=== PATIENT | female | born 1985 | race Caucasian/White ===

== ENCOUNTER 2019-01-01 12:33 | Emergency (ER) | payer MEDICAID, SELFPAY ==
[2019-01-01 12:56] VITALS: BP 110/69; PULSE 42; RESP 16; TEMP 36.6; O2SAT 48
--- NOTE | 2019-01-01 16:49 | ED.GENADUL_ITS ---
Discharge Plan Disposition Patient Disposition: HOME Discharge Details Chief Complaint: EarProblem Clinical Impression: Ear foreign body Primary Care Provider: None,None ED Provider: Renetta Hall Discharge Instructions Additional Instructions: Observe for any pain, drainage or discomfort. Return for any concerns or worsening sooner if needed Discharge Data Discharge Date/Time-TO BE ENTERED AT DEPARTURE: 01/01/19 14:06 Medical Decision Making External earbud when molded adhered to patient's hearing. Myringotomy forceps used to separate the mold from the earring then foreign object was easily removed from the external ear. No sign of complication. Patient tolerated without difficulty. HPI General Date/Time Provider Initiated Documentation: 01/01/19 12:45 . HPI Narrative: Patient presents for complaints of a ear problem. Patient reports she was molding in the earbud into her ear and it accidentally molded around the loop pinna ring she had in place. Patient is now unable to remove the earbud. Patient denies associated pain unless attempts to remove the ear but externally. Patient denies any significant hearing changes. No other concerns or complaints Related Data Allergies Allergy/AdvReac Type Severity Reaction Status Date / Time Anesthetics - Amide Type AdvReac Unverified 01/01/19 13:01 General Stated Complaint: EarProblem GARRY: 4 Review of Systems All systems reviewed & are unremarkable except as noted in HPI and below ENT Ears, Nose, Mouth, and Throat: Denies ear discharge, Denies otalgia and Denies hearing loss [facility] Social History Smoking/Tobacco Use Status: Never Alcohol Intake: current Substance use type: does not use Do you feel safe at home: Yes Do you feel safe in your relationship?: Yes Exam Narrative Exam Narrative: CONST: Healthy appearing patient, in no acute distress. Well hydrated. Alert and alert. HENMT: Head nomocephalic, normal to inspection. Atraumatic. Hearing grossly normal. Patient has an external ear bud which fills the area of her Pin?a as well as her external ear canal. The multiple ear bud is stuck adhered to the loop hearing which she has through her pinna. I was able to remove this using myringotomy forceps. External earbud removed completely. External ear canal and TM appear intact and normal. SKIN: Normal. Dry. No rashes. Course Vital Signs Vital signs: Vital Signs Temperature 36.6 C 01/01/19 12:56 Pulse 42 L 01/01/19 12:56 Respiratory Rate 16 01/01/19 12:56 Blood Pressure 110/69 01/01/19 12:56 Pulse Oximetry 48 L 01/01/19 12:56 Temperature 36.6 C 01/01/19 12:56 Temperature Source Temporal Artery Scan 01/01/19 12:56 Pulse 42 L 01/01/19 12:56 Respiratory Rate 16 01/01/19 12:56 Respiratory Effort 01/01/19 13:02 Blood Pressure 110/69 01/01/19 12:56 Blood Pressure Position Sitting 01/01/19 12:56 Pulse Oximetry 48 L 01/01/19 12:56 Oxygen Delivery Method Room Air 01/01/19 12:56 Oxygen Flow Rate 0 01/01/19 12:56 Pain Level 0 01/01/19 14:06
== END 2019-01-01 14:06 | disposition home or self-care (01) ==
PROVIDERS: Emergency Provider Physician Assistant
DX: T16.2XXA Foreign body in left ear, initial encounter (principal)
CPT/HCPCS: 99282

== ENCOUNTER 2019-02-07 16:50 | Outpatient (REF) | payer MEDICAID, SELFPAY ==
--- NOTE | 2019-02-07 16:40 | PAPFT_PTH ---
PATIENT: BRUCE MOISE LOC: [facility] U#:[id number] AGE/SX: 33/F ROOM: RE02/07/[address]: Manisha Pardo : 1985 BED: DIS: 02/07/2019 SPEC #: [id number] RECD: 02/07/19 18:29 STATUS: KVNG REQ #: [id number] JOE: 02/07/19 16:[address]: Manisha Pardo DEPT: [facility] Cytology RECD BY: Verito Silveira ENTERED: 02/07/19 18:29 SP TYPE: PAPFT RAYNA DR: Radha Matt, PhD [employer] Tissues: 1 - CX/ENDOCX FOR PAP SMEARS Procedures: PAP THIN PREP/[facility] Screening HPV DNA PROBE Comments: [id number] (CHLAMYDIA/GC)
[2019-02-10 14:23] LABS: Chlamydia Result Negative (Negative); GC Result Negative (Negative)
== END 2019-02-07 17:10 ==
LOC: LBN 16:50
PROVIDERS: PCP Nurse Practitioner; Visit Provider Advanced Practice Midwife
DX: Z12.4 Encounter for screening for malignant neoplasm of cervix (principal); Z11.3 Encounter for screening for infections with a predominantly sexual mode of transmission
CPT/HCPCS: 87491; 87591; 88142; 87624